=== PATIENT | male | born 1955 | race African-American/Black ===

== ENCOUNTER 2022-07-29 04:46 | Day surgery (SDC) | payer OTHER ==
[2022-07-28 10:01] VITALS: BMI 22.0
[2022-07-29] MEDS ORDERED: EPINEPHrine 1:10,000 (P-F SYR) 1 MG/10 ML DISP.SYRIN SQ ONE (10:10)
[2022-07-29 11:01] VITALS: BP 138/74; PULSE 54; RESP 13; TEMP 97
== END 2022-07-29 11:01 | disposition home or self-care (01) ==
LOC: JASU-ENDO 04:46
PROVIDERS: ATTEND Student in an Organized Health Care Education/Training Program
PROC: 3E0H8KZ Introduction of Other Diagnostic Substance into Lower GI, Via Natural or Artificial Opening Endoscopic (ICD-10-PCS; 2022-07-29)
PROC: 0DBK8ZX Excision of Ascending Colon, Via Natural or Artificial Opening Endoscopic, Diagnostic (ICD-10-PCS; principal; 2022-07-29 09:30)
DX: D12.2 Benign neoplasm of ascending colon (principal)
CPT/HCPCS: 82962; 88305-TC

== ENCOUNTER 2024-03-02 20:11 | Observation (INO) | payer OTHER ==
[2024-03-02 20:19] VITALS: BMI 21.2
[2024-03-02] MEDS ORDERED: ACETAMINOPHEN INJECTION 100 ML ONE (21:02)
[2024-03-02 21:20] LABS: BASO % 0.2 % (0-2.0); EOS % 0.2 % (0-4.5); HEMATOCRIT 43.5 % (35.4-49); HEMOGLOBIN 14.3 GM/dL (11.7-16.9); LYMPH % 8.5 % (8-40); MCH 27.6 pg (25.7-33.7); MCHC 32.9 g/dl (32.0-35.9); MEAN CELL VOLUME 83.8 fl (80-96); MEAN PLT VOLUME 7.9 fl (7.5-11.1); NEUT % 89.1 % (42.8-82.8); PLATELET COUNT 170 10^3/uL (134-434); RBC 5.19 M/mm3 (4.00-5.60); RDW 15.3 % (11.9-15.9)
[2024-03-02] MEDS: ACETAMINOPHEN 1000 MG/100 ML BAG IVPB ONE (21:24)
[2024-03-02 21:34] LABS: INR 0.91 (0.83-1.09); PROTHROMBIN TIME (PATIENT) 10.3 SEC (9.7-13.0)
[2024-03-02 21:37] LABS: ACTIVATED PTT 36.5 SECONDS (25.2-36.5)
[2024-03-02 21:46] LABS: POTASSIUM 3.6 mmol/L (3.5-5.1)
[2024-03-02 21:48] LABS: ALBUMIN 3.8 g/dl (3.4-5.0); BLOOD UREA NITROGEN 23.9 mg/dL (7-18); CALCIUM 9.1 mg/dL (8.5-10.1)
[2024-03-02 21:49] LABS: MAGNESIUM 1.7 mg/dL (1.8-2.4)
[2024-03-02 21:51] LABS: CREATININE 1.1 mg/dL (0.55-1.3)
[2024-03-02 21:53] LABS: BILIRUBIN,TOTAL 0.6 mg/dL (0.2-1); TOT PROT 7.6 g/dl (6.4-8.2)
[2024-03-02 23:28] LABS: PH,URINE 7.5 (5.0-8.0); URINE APPEARANCE CLEAR; URINE BILIRUBIN NEGATIVE (NEGATIVE); URINE COLOR YELLOW; URINE GLUCOSE (UA) 3+ (NEGATIVE); URINE KETONE NEGATIVE (NEGATIVE); URINE LEUK ESTERASE NEGATIVE (NEGATIVE); URINE NITRITE NEGATIVE (NEGATIVE); URINE PROTEIN NEGATIVE (NEGATIVE)
[2024-03-03] MEDS ORDERED: DOCUSATE SODIUM 100 MG CAPSULE (FP) PO PRN (01:21)
[2024-03-03] MEDS: MAGNESIUM SULFATE IN WATER 2 GM/50 ML IVPB IVPB ONE (02:46)
[2024-03-03] MEDS ORDERED: METHOCARBAMOL 500 MG TABLET PO PRN (03:03)
[2024-03-03] MEDS ORDERED: ACETAMINOPHEN 1000 MG/100 ML BAG IVPB PRN (03:30)
[2024-03-03] MEDS: INSULIN ASPART SLIDING SCALE (NOVOLOG) 1 VIAL SQ SCH (06:25)
[2024-03-03 07:34] LABS: BASO % 0.2 % (0-2.0); EOS % 0.9 % (0-4.5); HEMATOCRIT 42.6 % (35.4-49); HEMOGLOBIN 14.2 GM/dL (11.7-16.9); LYMPH % 25.5 % (8-40); MCHC 33.2 g/dl (32.0-35.9); MEAN CELL VOLUME 84.1 fl (80-96); MEAN PLT VOLUME 8.1 fl (7.5-11.1); MONO % 6.6 % (3.8-10.2); NEUT % 66.8 % (42.8-82.8); PLATELET COUNT 174 10^3/uL (134-434); RBC 5.07 M/mm3 (4.00-5.60); RDW 15.2 % (11.9-15.9); WHITE BLOOD COUNT 9.6 K/mm3 (4.0-10.0)
[2024-03-03 07:56] LABS: POTASSIUM 3.5 mmol/L (3.5-5.1)
[2024-03-03 08:03] LABS: BLOOD UREA NITROGEN 20.6 mg/dL (7-18); MAGNESIUM 2.3 mg/dL (1.8-2.4)
[2024-03-03 08:06] LABS: CREATININE 0.8 mg/dL (0.55-1.3)
[2024-03-03 08:07] LABS: PHOSPHOROUS 3.1 mg/dL (2.5-4.9)
[2024-03-03] MEDS: amLODIPine BESYLATE 10 MG TABLET (FP) PO SCH (10:08)
[2024-03-03] MEDS: ASPIRIN COATED 81 MG TABLET.EC PO SCH (10:08)
[2024-03-03] MEDS: LOSARTAN POTASSIUM 50 MG TABLET PO SCH (10:08)
[2024-03-03 15:02] VITALS: BP 123/81; PULSE 55; RESP 18; TEMP 98.9
[2024-03-03] MEDS ORDERED: ATORVASTATIN CA 80 MG TABLET (FP) PO SCH (22:00)
[2024-03-04] MEDS ORDERED: ACETAMINOPHEN 325 MG TABLET (FP) PO PRN (03:30)
== END 2024-03-03 18:59 | disposition left against medical advice (07) ==
LOC: JER 20:11 → JERBED 03-03 00:55 → J4S 03-03 02:15
PROVIDERS: ADMIT Internal Medicine; ATTEND Internal Medicine
PROC: 3E033NZ Introduction of Analgesics, Hypnotics, Sedatives into Peripheral Vein, Percutaneous Approach (ICD-10-PCS; principal; 2024-03-03)
PROC: 3E033GC Introduction of Other Therapeutic Substance into Peripheral Vein, Percutaneous Approach (ICD-10-PCS; 2024-03-03)
DX: R55 Syncope and collapse (principal); W10.9XXA Fall (on) (from) unspecified stairs and steps, initial encounter; Y93.89 Activity, other specified; Y92.89 Other specified places as the place of occurrence of the external cause; I10 Essential (primary) hypertension; E78.5 Hyperlipidemia, unspecified; M79.604 Pain in right leg; E11.9 Type 2 diabetes mellitus without complications; N20.0 Calculus of kidney
CPT/HCPCS: 0241U-QW; 36415; 70450-TC; 71046-TC-FY; 72100-TC-FY; 72125-TC; 72170-TC-FY; 76870-TC; 80048; 80053; 80061; 81003; 82962; 83036; 83735; 83880; 84100; 84443; 84484; 85025; 85610; 85730; 87086; 93005; 93010; 93306-TC; 93880-TC; 96365; 96375; 97116-GP; 97161-GP; 99285-25; G0378; J0131